=== PATIENT | male | born 1960 | race Caucasian/White ===

== ENCOUNTER 2022-07-16 19:20 | Emergency (ER) | payer OTHER ==
[~2022-07-16] VITALS: Ht 177.8 cm; Wt 90.3 kg
--- NOTE | 2022-07-16 19:56 | ED Lower Extremity ---
General Chief Complaint: Lower Extremity Stated Complaint: ANKLE INJURY Nursing Triage Note: PT ARRIVAL TO ER FROM HIS WORK PLACE AFTER HURTING ANKLE ON THE JOB. PT STATES THAT HE WAS USING A LIFT JUDITH AND HANDLE FELL AND STRUCK TOP OF RIGHT FOOT. PAIN HAS BEEN CONSTANT SINCE INJURY YESTERDAY MORNING. Source: patient Exam Limitations: no limitations History of Present Illness Date Seen by Provider: Jul 16, 2022 Time Seen by Provider: 19:35 Initial Comments This is a well-appearing 62-year-old male who presented to the ER for evaluation of his right ankle after he injured it at work. States that he was using a lift judith and the handle fell and the metal piece ended up striking the top of his right inner ankle and his left inner knee. States that he has mild muscle pain in his left knee, otherwise has no complaints. His right ankle he reports having difficulty walking on his foot now. 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 oz. kg; 28.00 BMI Method: Progress/Results/Core Measures Results/Orders My Orders Orders - MICHOACANO ALLEN APRN Ankle, Right, 3 Views (07/16/22 19:46) Foot, Right, 3 View (07/16/22 20:03) Vital Signs/I&O 07/16/22 19:32 Temp 36.9 Pulse 91 Resp 16 B/P (MAP) 155/90 (111) Pulse Ox 96 O2 Delivery Room Air Blood Pressure Mean: 111 Departure Impression Primary Impression: Contusion of right foot Additional Impression: Contusion of right ankle Disposition: 01 HOME, SELF-CARE Condition: Stable Departure-Patient Inst. Decision time for Depature: 20:09 Add. Discharge Instructions: Plan: 1. Discharge home. 2. Follow up with your primary care provider if symptoms persist for repeat imaging. 3. Keep affected site elevated above your heart over the next 72 hours to reduce swelling and pain. This is when the most swelling will occur. 4. Keep splings or dressings dry. 5. Wear meri bandage as directed. Re-wrap at least twice daily. 6. Use ice 20 minutes at a time for swelling/pain. 7. Wiggle toes or fingers often to prevent swelling. 8. If extremity becomes numb, cold, more painful, blanched or discolored or excessively swollen, contact your physician or return to the ER. 9. May take Tylenol or Ibuprofen as needed for pain per package. 10. Return to ER for any new, concerning, or worsening symptoms. All discharge instructions reviewed with patient and/or family. Voiced understanding. MICHOACANO ALLEN [employer] ADMINISTRATOR Jul 16, 2022 19:56
--- NOTE | 2022-07-16 20:29 | Diagnostic Imaging Report ---
INDICATION: Hit with metal plate, medial ankle tenderness TECHNIQUE: Three views of the right ankle CORRELATION STUDY: None FINDINGS: The bony alignment is anatomic. The talar dome is intact. The ankle mortise is maintained. There is no acute fracture or dislocation. Mild soft tissue edema. IMPRESSION: Negative for acute bony abnormality of the right ankle. Dictated by: Dictated on workstation # [id number]
--- NOTE | 2022-07-16 20:31 | Diagnostic Imaging Report ---
INDICATION: Hit with metal . Pain. TECHNIQUE: 3 views of the right foot CORRELATION STUDY: None FINDINGS: The osseous structures of the foot are intact. Joint spaces are maintained. Alignment anatomic. Very small plantar calcaneal spur. Soft tissues appearing unremarkable. IMPRESSION: 1. Negative for acute findings of the foot. Dictated by: Dictated on workstation # [id number]
[2022-07-16 20:58] VITALS: BP 143/87
== END 2022-07-16 21:04 | disposition home or self-care (01) ==
LOC: ER 19:24
DX: S90.01XA Contusion of right ankle, initial encounter (principal); S90.32XA Contusion of left foot, initial encounter; W20.8XXA Other cause of strike by thrown, projected or falling object, initial encounter; Y99.0 Civilian activity done for income or pay
CPT/HCPCS: 73610; 73630